=== PATIENT | female | born 1955 | race Caucasian/White ===

== ENCOUNTER 2018-01-03 09:19 | Observation (INO) ==
--- NOTE | 2018-01-02 13:30 | MH ---
cc: Osmar Yates MD DATE OF ADMISSION: 01/03/2018 ADMISSION DIAGNOSIS: End-stage osteoarthritis, left knee. PRESENT HISTORY: This patient has a problem with her knee for several years, and it has gradually gotten worse. We have treated her with nonsteroidal anti-inflammatory agents, cortisone shots, and even viscosupplementation. She has now come to the point, where she cannot do activities of daily living without difficulty, and having to some instability, and therefore, she is now being brought in, after informed consent for a total knee replacement arthroplasty. The procedure of total knee replacement arthroplasty, the potential risks, hazards, complications, and expected results have all been discussed with her in detail. Post-hospital and post-surgical care have been discussed. Details of informed consent are documented on the office record and will not be repeated here. PAST MEDICAL HISTORY: She has a diagnosis of rheumatoid arthritis and has been on Enbrel for several years. She has had some leukopenia for several years. She also suffers from some depression and anxiety. She is under the care of scallop raker, Dr. Pang. Medical clearance has been obtained. Preop workup was satisfactory, except for some leukopenia, but the absolute neutrophils are over 1300. She has stopped Enbrel 3 weeks ago, and she is going to stay off of it for 6 weeks postoperatively. ALLERGIES: TETRACYCLINE. MEDICATIONS: 1. Amaryl that has been stopped for a while. 2. Sulfasalazine. 3. Folic acid. 4. Hormone replacement. 5. Pantoprazole. 6. Levothyroxine. 7. Duloxetine. 8. Hydrochlorothiazide 9. Tizanidine. 10. Bethanechol. 11. Mineral patch. 12. Nupro patch. PHYSICAL EXAMINATION: VITALS: Reveals a 5 feet 9 inches tall, 260 pound, white female, who walks with a limp on the left leg. EXTREMITIES: Left knee has a moderate degree of swelling, mild effusion, and mild warmth. No redness. She lacks the last 5-10 degrees of extension. She could flex past 90 degrees, but a lot of pain on flexion past 90 degrees. No obvious deformity, even though x-rays show predominant involvement of medial joint compartment with [id number]. She has palpable pedal pulses. She moves her toes well. HEENT: Head is normocephalic. Pupils reactive to light. Face symmetrical. HEART: Regular rate and rhythm. No murmurs. LUNGS: Clear to auscultation. ABDOMEN: Soft and supple. Osmar Yates MD SS/rh , 01:07 PM , 01:18 PM
[2018-01-03] MEDS ORDERED: ceFAZolin 2 GM Premix Inj 2 GM/100 ML BAG IV.SIG ONE (09:57)
[2018-01-03] MEDS ORDERED: SODIUM CHLOR 0.9% IV.SIG SCH ×2 (10:00→13:00)
[2018-01-03] MEDS ORDERED: ceFAZolin 2 GM Premix Inj 2 GM/50 ML PIGGYBACK IV.SIG SCH ×2 (10:00→15:00)
[2018-01-03] MEDS ORDERED: TRANEXAMIC ACID IV.SIG SCH ×2 (10:00→13:00)
[2018-01-03] MEDS ORDERED: Sodium Chlor 0.9% Inj 73.07 ML, Ropivacaine 0.5% PF Inj 24.63 ML, Ketorolac Inj 30 MG, ... P-ARTICULR SCH ×5 (10:00)
[2018-01-03] MEDS ORDERED: Vancomycin Inj 1,500 MG in Sodium Chlor 0.9% Inj 500 ML IV.SIG SCH (10:00)
[2018-01-03] MEDS ORDERED: Metoprolol Tartrate 25 MG Tablet PO ONE (10:01)
[2018-01-03] MEDS ORDERED: Chlorhexidine Gluconate 2% 1 Pack (2 Cloths) TOPICAL ONE (10:01)
[2018-01-03] MEDS ORDERED: Tobramycin Sulfate 1,200 MG Vial (for ortho/sterile core) OTHER ONE (10:48)
[2018-01-03] MEDS ORDERED: Sodium Chlor 0.9% Inj 500 ML IV.SIG SCH (11:00)
[2018-01-03] MEDS ORDERED: Lidocaine PF 1% Inj 5 ML Syringe OTHER ONE (11:30)
[2018-01-03] MEDS ORDERED: Phenylephrine/NS 1000 MCG/10ML Syringe IV.PUSH ONE (11:30)
[2018-01-03] MEDS ORDERED: *Ondansetron Inj 4 MG/2 ML Vial PERIprocedural Use ONLY ONE (14:07)
[2018-01-03] MEDS ORDERED: *Meperidine Inj 25 MG/ML Vial PERIprocedural Use ONLY ONE (14:07)
[2018-01-03] MEDS ORDERED: fentaNYL Citrate Inj 100 MCG/2 ML Ampul ONE (14:07)
[2018-01-03] MEDS ORDERED: Aluminum/Magnesium/Simethacone Susp 30 ML UDC PO PRN ×2 (14:08→14:12)
[2018-01-03] MEDS ORDERED: Post-op Orders (for Pharmacy) OTHER STA ×2 (14:08→14:12)
[2018-01-03] MEDS ORDERED: Bisacodyl 10 MG Supp RECTAL PRN ×2 (14:08→14:12)
[2018-01-03] MEDS ORDERED: Morphine Inj 4 MG/ML Vial IV.PUSH PRN (14:12)
[2018-01-03] MEDS ORDERED: Ketorolac Inj 30 MG/ML (IVP) Vial IV.PUSH SCH (14:15)
[2018-01-03] MEDS ORDERED: Sod Chloride 0.9% Inj 1,000 ML IV.CONT SCH (14:15)
[2018-01-03] MEDS ORDERED: Rivaroxaban 10 MG Tablet PO SCH (14:15)
[2018-01-03] MEDS ORDERED: *Promethazine Inj 25 MG/ML Vial PERIprocedural use ONLY ONE (14:24)
--- NOTE | 2018-01-03 14:26 | P.DCO ---
- Physical Therapy Knee: Total knee Left Lower Extremity Range of Motion: Active assistive ROM - Nursing Nursing: Dressing changes Dressing changes: Coverderm/Primapore - Certification Need for Home Health services: I have seen patient Tena Shore on 01/03/18. My clinical findings support the need for the requested home health care services because: Need for Home Health Services: Limited ability to care for self Homebound Certification: I certify that my clinical findings support that this patient is homebound because: Homebound Certification: Unable to use public transportation
--- NOTE | 2018-01-03 14:27 | MP ---
cc: Osmar Yates MD DATE OF OPERATION: 01/03/2018 PREOPERATIVE DIAGNOSIS: Osteoarthritis, left knee. Rheumatoid arthritis POSTOPERATIVE DIAGNOSIS: Osteoarthritis, left knee. Rheumatoid arthritis OPERATIVE PROCEDURE: 1. Total knee replacement arthroplasty, left knee using [employer] components with the components as follows: Femur 67.5 mm left, tibia 71 mm with I-beam stem, tibial polyethylene 10 mm standard, patella single peg polyethylene, all cemented. 2.level of difficulty, moderate due to severe obesity, BMI 39 SURGEON: Osmar Yates MD ANESTHESIA: General. TECHNIQUE: After induction of general anesthesia, the patient's left lower extremity was thoroughly prepped with alcohol and ChloraPrep and draped in routine fashion. After application of Esmarch bandage, tourniquet inflated to 300 mmHg. A slightly medial to midline incision was made, deepened through subcutaneous tissue to fascia. Substantial subcutaneous fat encountered due to obesity. A medial parapatellar arthrotomy incision was carried out. The knee joint had a significant amount of synovitis with dark purplish discoloration of it. Some of the suprapatellar tenosynovium was excised in the course of the procedure over the distal femur and this tissue was sent for pathology to see if it shows evidence of rheumatoid arthritis. Limited elevation of the medial structures carried out off of the proximal tibia and osteophytes removed. Debridement of the joint was carried out. The femoral canal opened anterior to the posterior cruciate ligament and the distal femoral cutting guide set at 6 degrees was used. Two additional millimeters of bone was removed because of flexion contracture. We then proceeded to do upper tibial osteotomy using the external tibial guide referencing 6 mm from the lower most portion of the medial tibial plateau. AP femoral guide was used in about 4 degrees external rotation aligning with epicondylar axis and Whitesides line and the anterior and posterior femoral cuts were made for a 70 mm implant. Tibial cut was checked. The spacer block used was too tight. Therefore, 2 additional mm of bone removed from the tibia. We were not able to put the 10 mm spacer block in good alignment and full extension and 90-degree flexion. Patellar osteophytes were excised. Patella prepared following routine technique. All trial implants were placed. It appears that there is some tightness in flexion with anterior displacement of the tibia in relation to the femur and therefore, the femur was downsized to a 67.5 mm by using the proper cutting guide, etc. Once the final trial implants were placed, position of the lamina stability were all good, patellar tracking is good. The trial implants were removed. In the meantime, the tourniquet had gotten loose and therefore, the tourniquet was released. Bony surfaces were thoroughly lavaged and dried and the implants were then cemented in place in sequence starting with the tibia and ending with the patella. The knee was extended with a 10 mm spacer. Once the cement solidified, the knee was checked, spacer was removed. Everything looked good with the 10 mm spacer and therefore, once the joint was thoroughly lavaged and cleaned, the 10-mm tibial polyethylene was placed and clipped. Final position and alignment and stability are all good. A 1/8 inch Hemovac drain left in the suprapatellar pouch, brought out through a stab incision. The knee was closed in mid flexion with 4 interrupted #2 Vicryl sutures and the rest with #2 Quill. Subcutaneous tissue was closed with 2-0 Vicryl sutures and skin with a 3-0 subcuticular Quill and a dermabond mesh dressing. The patient was transferred to the recovery room in satisfactory condition. The patient tolerated the procedure well. The procedure took approximately 30 minutes longer because of her obesity, in terms of exposure, loss of tourniquet control middle of procedure ,and for closure. COMPLICATIONS: None. POSTOPERATIVE CONDITION: Satisfactory. PROGNOSIS: Good. MD BRAIN Whitman/ct , 01:49 PM , 02:01 PM BRITNEY
[2018-01-03] MEDS: Sod Chloride 0.9% Inj 1,000 ML IV.CONT SCH (14:40)
--- NOTE | 2018-01-03 14:55 | XR ---
EXAM DATE: 01/03/2018 2:50 PM EDT AGE/SEX: 62 years / Female INDICATIONS: Post op left total knee arthroplasty. CLINICAL DATA: This is the patient's initial encounter. Patient reports that signs and symptoms have been present for 1 day and indicates a pain score of 10/10. MEDICAL/SURGICAL HISTORY: None. None. COMPARISON: POI, XR KNEE COMPLETE, LEFT, 02/03/2016. . FINDINGS: Patient's had a total knee arthroplasty in excellent position. Surgical drains overlie the suprapatel lar bursa. No evidence of fracture. CONCLUSION: Total knee arthroplasty in good position. Electronically signed by: Den Espinoza MD 01/03/2018 2:54 PM EDT
[2018-01-03] MEDS ORDERED: Vancomycin Inj 1 GM/200 ML PIGGYBACK IV.SIG SCH (15:00)
[2018-01-03] MEDS: Ketorolac Inj 30 MG/ML (IVP) Vial IV.PUSH SCH ×2 (15:29→20:40)
[2018-01-03] MEDS: ceFAZolin Inj 2,000 MG in Sodium Chlor 0.9% Inj 100 ML IV.SIG SCH ×2 (18:26→22:32)
[2018-01-03] MEDS: Senna/Docusate Sodium 8.6/50 MG Tablet PO SCH (20:40)
[2018-01-03] MEDS ORDERED: Senna/Docusate Sodium 8.6/50 MG Tablet PO SCH (21:00)
[2018-01-03] MEDS: Vancomycin Inj 1,000 MG in Sodium Chlor 0.9% Inj 250 ML IV.SIG SCH (23:05)
[2018-01-04] MEDS: Sod Chloride 0.9% Inj 1,000 ML IV.CONT SCH ×2 (01:26→19:41)
[2018-01-04] MEDS: Ketorolac Inj 30 MG/ML (IVP) Vial IV.PUSH SCH ×5 (01:29→20:36)
[2018-01-04 05:11] LABS: Hematocrit 29.4 % (35.0-46.0); Hemoglobin 9.4 gm/dL (11.6-15.3)
[2018-01-04] MEDS: ceFAZolin Inj 2,000 MG in Sodium Chlor 0.9% Inj 100 ML IV.SIG SCH (05:33)
--- NOTE | 2018-01-04 07:40 | P.PNOP ---
Subjective Interval history: Somewhat painful this morning the block has worn off. Physical Exam Vital signs: Vital Signs 01/03/18 10:29 01/03/18 14:00 01/03/18 14:15 Temperature 98 F Pulse Rate 99 H 87 81 Respiratory Rate 20 15 Blood Pressure 143/99 H 139/69 Pulse Oximetry 97 97 94 L 01/03/18 14:30 01/03/18 14:45 01/03/18 15:00 Temperature Pulse Rate 97 H 83 83 Respiratory Rate 15 19 15 Blood Pressure 141/67 H 125/61 131/63 Pulse Oximetry 95 95 97 01/03/18 15:15 01/03/18 15:50 01/03/18 16:00 Temperature 98.1 F 98.5 F Pulse Rate 86 102 H Respiratory Rate 14 18 Blood Pressure 128/61 126/59 L Pulse Oximetry 96 99 95 01/03/18 19:31 01/03/18 20:00 01/03/18 21:10 Temperature 97.9 F Pulse Rate 97 H Respiratory Rate 18 17 18 Blood Pressure 111/56 L Pulse Oximetry 96 01/03/18 23:43 01/04/18 00:00 01/04/18 00:52 Temperature 98.5 F Pulse Rate 89 Respiratory Rate 18 16 18 Blood Pressure 124/59 L Pulse Oximetry 97 01/04/18 01:58 01/04/18 01:59 01/04/18 04:00 Temperature 98.5 F Pulse Rate 101 H Respiratory Rate 18 18 16 Blood Pressure 101/54 L Pulse Oximetry 94 L Intake & Output 01/03/18 01/04/18 01/04/18 18:59 06:59 18:59 Intake Total 1635 / 1635 1490 / 1490 Output Total 350 / 350 90 / 90 Balance 1285 / 1285 1400 / 1400 Weight 115.3 kg Intake: IV 635 / 635 1490 / 1490 NS Inj 1,000 ML @ 100 mls/hr IV 1000 / 1000 .CONT .Q10H LUIGI Rx#:[id number] Vancomycin Inj 1,000 MG In NS 250 / 250 Inj 250 ML @ 250 mls/hr IV.SIG Q12H LUIGI Rx#:[id number] Vancomycin Inj 1,500 MG In NS 515 / 515 Inj 500 ML @ 250 mls/hr IV.SIG [employer] LUIGI Rx#:[id number] Ancef Inj 2,000 MG In NS Inj 120 / 120 240 / 240 100 ML @ 240 mls/hr IV.SIG Q6H LUIGI Rx#:[id number] Anesthesia Amount 1000 / 1000 Output: Estimated Blood Loss 350 / 350 Wound Drainage # 1 Left Knee Hemovac Other: # Voids 2 Date of Last Bowel Movement 01/03/18 01/03/18 Weight On Admission 115.3 kg Narrative: She is awake and alert. She is in bed. Drain is been removed and dressings have been changed. She moves her toes well. Dressings are dry. I taught her how to do quadriceps isometrics. She is still not able to straight leg raise and the importance of trying to do that discussed. Results - Labs CBC & Chem 7: 01/04/18 04:52 Laboratory Results - last 24 hr 01/03/18 01/04/18 10:25 04:52 Hgb 9.4 L Hct 29.4 L Blood Type O Positive Blood Type Recheck Required Antibody Screen Negative - Imaging Impressions Knee X-Ray 01/03/18 00:00 CONCLUSION: Total knee arthroplasty in good position. Assessment and Plan - Ortho Post Op Day # 1 - Assessment and Plan Postop day 1 total knee replacement arthroplasty left knee. Continue pain management and rehabilitation so we can discharge her tomorrow with home health care
[2018-01-04] MEDS: Senna/Docusate Sodium 8.6/50 MG Tablet PO SCH ×2 (09:15→20:36)
[2018-01-04] MEDS: Levothyroxine 112 MCG Tablet PO SCH (09:47)
[2018-01-04] MEDS: sulfaSALAzine 500 MG Tablet PO SCH ×2 (09:47→20:36)
[2018-01-04] MEDS: Vancomycin Inj 1,000 MG in Sodium Chlor 0.9% Inj 250 ML IV.SIG SCH (11:09)
[2018-01-04] MEDS: Rivaroxaban 10 MG Tablet PO SCH (13:04)
[2018-01-04 15:26] LABS: Calcium 7.9 mg/dL (8.5-10.1); Carbon Dioxide 30.7 meq/L (21.0-32.0); Potassium 3.7 meq/L (3.5-5.1)
[2018-01-04] MEDS ORDERED: Montelukast 10 MG Tablet PO SCH (18:00)
[2018-01-04 20:26] VITALS: O2SAT 94
[2018-01-05] MEDS: Ketorolac Inj 30 MG/ML (IVP) Vial IV.PUSH SCH ×2 (03:11→09:02)
[2018-01-05] MEDS: Levothyroxine 112 MCG Tablet PO SCH (05:51)
[2018-01-05] MEDS: Senna/Docusate Sodium 8.6/50 MG Tablet PO SCH (10:33)
[2018-01-05] MEDS: sulfaSALAzine 500 MG Tablet PO SCH (10:33)
[2018-01-05 11:11] VITALS: BP 136/63; PULSE 99; RESP 16; TEMP 97.6
[2018-01-05] MEDS: Rivaroxaban 10 MG Tablet PO SCH (14:25)
== END 2018-01-05 15:20 | disposition home health service (06) ==
LOC: HSDI 09:19 → HSDC 09:19 → EDSTATUS 11:30 → N06 16:30
PROVIDERS: ADMIT Orthopaedic Surgery; ATTEND Orthopaedic Surgery